=== PATIENT | female | born 1945 | race Caucasian/White ===

== ENCOUNTER → 2016-12-31 | Outpatient (CLI) | payer MEDICARE, BC ==
[~2016-12-31] MED LIST: ASPI-515 PO; HYDR200T5 PO; LEVO100T PO; LEVO112T4 PO; LEVO500T8 PO; SIMV10TA3 PO
== END | disposition home or self-care (01) ==
LOC: CFH 08:24
PROVIDERS: ATTEND Family Medicine
DX: J18.9 Pneumonia, unspecified organism (principal); J47.9 Bronchiectasis, uncomplicated; R91.8 Other nonspecific abnormal finding of lung field
CPT/HCPCS: 71250

== ENCOUNTER 2017-01-29 21:02 | Emergency (ER) | payer MEDICARE, BC ==
[~2017-01-29] VITALS: Ht 165.1 cm; Wt 49.8 kg
[2017-01-29 22:46] VITALS: BP 145/86
== END 2017-01-29 22:48 | disposition home or self-care (01) ==
LOC: ED 22:38
DX: S86.111A Strain of other muscle(s) and tendon(s) of posterior muscle group at lower leg level, right leg, initial encounter (principal); X58.XXXA Exposure to other specified factors, initial encounter; Y93.89 Activity, other specified; Y92.89 Other specified places as the place of occurrence of the external cause; Y99.9 Unspecified external cause status
CPT/HCPCS: 93005; 99284

== ENCOUNTER 2018-07-23 10:36 | Emergency (ER) | payer MEDICARE, BC ==
[~2018-07-23] VITALS: Ht 165.1 cm; Wt 49.5 kg
[~2018-07-23 10:36] MED LIST changes: +CHOL200074 PO; +CHOL400C PO; +LEVO175T5 PO; +MULT1TAB9 PO
[2018-07-23 10:40] VITALS: BP 124/74
== END 2018-07-23 11:51 | disposition home or self-care (01) ==
LOC: ED 11:45
DX: H53.8 Other visual disturbances (principal)
CPT/HCPCS: 99282

== ENCOUNTER 2019-03-06 12:11 | Outpatient (CLI) | payer MEDICARE, BC | END 2019-03-06 23:59 | disposition home or self-care (01) | LOC: CVU 12:11 → EDSTATUS 13:00 → CVU 23:59 | PROVIDERS: ATTEND Internal Medicine Cardiovascular Disease | DX: I08.3 Combined rheumatic disorders of mitral, aortic and tricuspid valves (principal); I65.23 Occlusion and stenosis of bilateral carotid arteries | CPT/HCPCS: 93306; 93880 ==

== ENCOUNTER → 2020-09-19 | Outpatient (CLI) | payer MEDICARE, BC ==
[~2020-09-19] MED LIST changes: -ASPI-515 PO; +ASPI-963 PO; +OMNIPAQUE 350 MG/ML, 100ML BOTTLE ONE; +SIMV10TA18 PO; -SIMV10TA3 PO
== END | disposition home or self-care (01) ==
LOC: CFH 09:05
PROVIDERS: ATTEND Pathology Hematology
DX: K76.0 Fatty (change of) liver, not elsewhere classified (principal); J47.9 Bronchiectasis, uncomplicated; J84.10 Pulmonary fibrosis, unspecified; D72.10 Eosinophilia, unspecified; J98.4 Other disorders of lung; M51.36 Other intervertebral disc degeneration, lumbar region
CPT/HCPCS: 71260; 74177; 82565; Q9967